=== PATIENT | male | born 1935 | race Caucasian/White ===

== ENCOUNTER 2016-06-08 08:42 | Inpatient (IN) | payer MEDICARE ==
[~2016-06-08] VITALS: Ht 177.8 cm; Wt 82.4 kg
--- NOTE | ~2016-06-08 | EEP ---
Initial Pacemaker Generator Implant Report Demographics Patient Name CHANDLER HORN Gender Male Patient Number [id number] Race Visit Number [id number] Ethnicity Corporate ID Room Number 410 Accession Number [id number] Height 177.8 cm Date of 1935 Weight 87.09 kg Age 80 year(s) BSA 2.05 m Referring Physician Sundar Tariq MD BMI 27.55 kg/m Maria Isabel Castle MD Implanting Physician Sundar Tariq MD Date of Study 06/10/2016 Assisting Physician Performing Physician Sundar Tariq MD The procedure was explained in detail to the patient. Risks, complications and alternative treatments were reviewed. Written consent was obtained. Medications reviewed with patient prior to procedure. Conclusions Implantable Device Summary Summary 1. Successful dual chamber pacemaker implant Recommendations 1. Chest X-ray post-op and in the AM 2. Device check in the AM 3. Follow up with [facility] provider in 5-7 days Complications No complications. Procedure Procedure Type Pacemaker:Initial Insertion (generator and leads), Dual Lead PM Insert A&V Leads Indications Bradycardia. Procedure Description The patient was brought to the electrophysiology laboratory in a fasting state. A baseline ECG was recorded. Surface ECG leads, intracardiac electrograms, blood pressure measurements, and pulse oximety signals were monitored. A grounding pad was placed on the back. A defibrillator was configured to deliver shocks via self-adhesive anterior posterior defibrillator pads. Conscious sedation was administered. The upper chest area was prepped with ChloraPrep. After a three minute dry time the patient was draped in a sterile fashion. A venogram of the left subclavian was performed and patent. 2% Lidocaine with Bupivicaine was used in the infraclavicular area and an incision was made. Blunt dissection down to the area of the Pectoralis Fascia was performed. Subclavian access was obtained and guidewires were placed into the SVC. 2% Lidocaine with Bupivicaine was used inferiorly to the incision. Blunt dissection anterior to the Pectoralis Fascia was used to form the pacemaker pocket. Over one wire, an intravenous sheath and dilator were placed in the superior vena cava under fluoroscopic vision. Through the sheath, the ventricular lead was then placed into the right ventricular apex under fluoroscopic vision and tested. The sheath was removed. The lead was sutured to the Pectoralis fascia using non-absorbable suture. Over the other wire, an intravenous sheath and dilator were placed in to the superior vena cava under fluoroscopic vision. Through the sheath, the atrial lead was then placed in the right atrium under fluoroscopic vision and tested. The sheath was removed. The lead was sutured to the Pectoralis Fascia using non-absorbable sutures. The leads were then connected to the pulse generator and screwed tight. The pocket was irrigated with Ancef. The lead(s) and pulse generator were then placed into the pacemaker pocket. The incision was then closed. It was closed using 2-0 Vicryl for the deep and intermediate layer and 4-0 Vicryl for the subcuticular layer. A sterile dressing was applied. The patient tolerated the procedure well and was returned to the nursing unit in stable condition. Devices and Leads Devices + + + +--------+------+ +--------+ !Identification!Action !Location !Device !Serial!Implant !Comments! ! ! ! !name !# !date ! ! + + + +--------+------+ +--------+ !New implant !Implanted !Left !OLIMPIAO![id number]!06/10/2016! ! ! ! !Subclavicular!MRI DR ! ! ! ! ! ! ! !L111 ! ! ! ! + + + +--------+------+ +--------+ Leads + + +--------+ +------+ +---------+ !Identification!Action !Location!Lead name !Serial!Implant !Comments ! ! ! ! ! !# !date ! ! + + +--------+ +------+ +---------+ !New implant !Implanted !RV apex !PACER LEAD ![id number]!06/10/2016! ! ! ! ! !INGEVITY ! ! ! ! ! ! ! !MRI 59 CM ! ! ! ! + + +--------+ +------+ +---------+ !New implant !Implanted !RA !PACER LEAD ![id number]!06/10/2016! ! ! ! !septal !INGEVITY ! ! ! ! ! ! ! !MRI 52 CM ! ! ! ! + + +--------+ +------+ +---------+ Leads Measured and Programmed Data +-------+---------+ +---------+ +---------+ + +------ -+ !Lead !Sensing Amplitude !Threshold (V) !Pulse Width (ms) !Impendence!Current! ! !(mV) ! ! !(Ohms) !(mA) ! +-------+---------+ +---------+ +---------+ + +------ -+ ! !Measured !Programmed !Measured !Programmed !Measured !Programmed ! ! ! +-------+---------+ +---------+ +---------+ + +------ -+ !RV apex!18.1 !2.5 !0.5 !3.5 !0.5 !0.5 !929 !0.6 ! +-------+---------+ +---------+ +---------+ + +------ -+ !RA !2.7 !0.5 ! !3.5 !0.5 !0.5 !621 ! ! !septal ! ! ! ! ! ! ! ! ! +-------+---------+ +---------+ +---------+ + +------ -+ Device Programming Bradycardia Zone +-------+--------+--------+--------+ + +------+--------+ !Pacing !Mode !Lower !Upper !Paced AV !Sensed AV !PVARP !VRP (ms)! !Mode !Switch !Rate !Rate !Interval !Interval !(ms) ! ! ! ! !(ppm) !(ppm) !(ms) !(ms) ! ! ! +-------+--------+--------+--------+ + +------+--------+ !DDDR !On !60 !110 !210 !180 !320 !250 ! +-------+--------+--------+--------+ + +------+--------+ Medical History Allergies - No known allergies:. Admission Data Admission Date: 06/08/2016 Admission Time: 13:30 Insurance Payors:Medicare. Hospital Status:Inpatient. Procedure Data Procedure Date:06/10/2016Start:14:57End:15:52 Fluoroscopy Time: 3:18 minutes.Fluoroscopy Dose: 121 mGy. Estimated blood loss:13 ml. Contrast Material - Isovue 370,10 ml. Procedure Medications Order and Administration + + +-------+-------+ !Time !Medication !Dosage !Route ! + + +-------+-------+ !06/10/2016 14:57 !Versed !1 mg !I.V. ! + + +-------+-------+ !06/10/2016 14:57 !Fentanyl !50 mcg !I.V. ! + + +-------+-------+ !06/10/2016 14:57 !Sodium Chloride !10 ml !I.V. ! + + +-------+-------+ !06/10/2016 15:01 !Versed !1 mg !I.V. ! + + +-------+-------+ !06/10/2016 15:08 !Fentanyl !50 mcg !I.V. ! + + +-------+-------+ !06/10/2016 15:09 !Versed !1 mg !I.V. ! + + +-------+-------+ !06/10/2016 15:10 !Versed !1 mg !I.V. ! + + +-------+-------+ !06/10/2016 15:33 !Ancef !1 g !Pocket ! + + +-------+-------+ Discharge Data Discharge Date: 06/12/2016 Signatures
--- NOTE | ~2016-06-08 | ECH ---
Transthoracic Echocardiography Report (TTE) Demographics Patient Name JUSTINA ARTEAGA Date of Study 06/09/2016 D Patient Number [id number] Visit Number [id number] Date of 1935 Room Number 410 Accession Number [id number] Gender Male Age 80 year(s) Referring Pradeep Segura Supervisor [employer] Delicia Ojeda [facility] Physician Man [place] Physician Interpreting Roger Mauro Lube Technician Physician Supervising Ordering Physician Priyank POPE MD/SHIRLEY Fernández Nurse Stress Chief Psychology Conclusions Summary Technically adequate exam. The estimated left ventricular ejection fraction is 65%. Mild to moderate left ventricular hypertrophy. The left atrium is severely dilated by LA volume index measurement. The right atrium is mild to moderately dilated. Mild-moderate mitral regurgitation by color Doppler. There is trivial aortic regurgitation by color Doppler. Mild tricuspid regurgitation by color Doppler. The TR jet was not optimal but suggests severe pulmonary hypertension. The estimated pulmonary pressure (RVSP) is 72 mmHg. Normal Right ventricular size and systolic function. No septal flattening. Procedure Type of Study TTE procedure:Echo Complete SF. Procedure Date Date: 06/09/2016 Start: 10:12 AM Technical Quality: Fair due to lung interference. Indications:Bradycardia, edema and Hypertension. Additional Indications:COPD Appropriate Use Criteria: 9 Height: 70 inches Weight: 192 pounds BSA: 2.05 m Rhythm: Sinus bradycardia HR: 49 bpm BP: 124/67 mmHg M-Mode/2D Measurements LV Diastolic Dimension: 5.27 cm LV Systolic Dimension: 2.41 cm LV Septum Diastolic: 1.38 cm LV PW Diastolic: 1.01 cm AO Root Dimension: 2.77 cm Cardiac Output: 5.3 l/min LA Dimension: 4.77 cm Cardiac Index: 2.59 l/min*m RV Diastolic Dimension: 2.99 cm LA volume index: 48 ml/m LVOT: 2.21 cm IVC Inspiration: 3.3 cm LVOT VTI: 28.23 cm RV Base: 4.2 cm LV Stroke volume: 108.23 ml RV Mid: 3 cm LV Stroke volume index: 52.8 ml/m RV Length: 7.4 cm Doppler Measurements AV Peak Velocity: 1.98 m/s MV Peak E-Wave: 1.25 m/s AV Peak Gradient: 15.68 mmHg MV Peak A-Wave: 0.51 m/s AV Mean Gradient: 8.38 mmHg MV E/A Ratio: 2.43 LVOT Peak Velocity: 1.22 m/s MV P1/2t: 67 msec AV Area (Continuity):2.16 cm MV Deceleration Time: 230.9 msec TR Velocity:3.96 m/s MV Area (PHT): 3.29 cm TR Gradient:62.73 mmHg Estimated RAP:10 mmHg Estimated PASP: 72.73 mmHg Estimated RVSP: 73 mmHg RA Area: 21.36 cm Findings Left Ventricle The left ventricle is normal in size . Mild to moderate left ventricular hypertrophy. Diastolic assessment reveals Grade II pseudonormal diastolic function . Right Ventricle Normal right ventricle structure and function. Left Atrium The left atrium is severely dilated by LA volume index measurement. Right Atrium The right atrium is mild to moderately dilated. Mitral Valve Mild thickening of the mitral valve leaflets. Mild-moderate mitral regurgitation by color Doppler. Aortic Valve The aortic valve is moderately sclerotic with a mean gradient of 8mmHg. There is trivial aortic regurgitation by color Doppler. Tricuspid Valve Normal tricuspid valve structure and function. Mild tricuspid regurgitation by color Doppler. There is severe pulmonary hypertension. The pulmonary pressure (RVSP) is 72 mmHg. Pulmonic Valve The pulmonic valve is not well visualized. Pericardial Effusion No evidence of pericardial effusion. Miscellaneous Visualized portions of the aortic root and ascending aorta appear normal in size. IVC 3.3cm with good collapse. Pleural Effusion No evidence of pleural effusion. Contractility Score LV regional wall motion:(0-Non visualized 1-Normal 2-Hypokinesis 3-Akinesis 4-Dyskinesis 5-Aneurysm) Signature
--- NOTE | 2016-06-10 10:37 | HP ---
ADMIT: 06/08/2016 RM/LOC: 410 [facility] MR#: [id number] 26[address] [facility] [address] [place] [id number] JUSTINA ARTEAGA [address] [place] [address] History and Physical SEX: M AGE: 80 : 1935 DATE OF SERVICE: CHIEF COMPLAINT: Shortness of breath. HISTORY OF PRESENT ILLNESS: The patient is an 80-year-old white male, who is normally followed at the [place] [facility] here in [place]. He states that over the past week, he has had a cough and some progressive shortness of breath. His breathing progressively worsened. He does have a COPD diagnosis and is on medications and inhalers for this. He felt that his shortness of breath was worsening significantly over the weekend and went in to see his physician at the [place] today. They immediately sent him into the emergency room for evaluation. He was found to have bilateral pneumonia on chest x-ray. He was also found to be hypoxic. He was, therefore, kept for IV antibiotics and treatment of his COPD and pneumonia. PAST MEDICAL HISTORY: The patient has history of COPD and has home oxygen use, prostate enlargement, hypothyroidism, hypertension, and previous left lung nodule with previous radiation treatment. MEDICATIONS: Current home med list includes: 1. Combivent inhaler 1 puff four times daily. 2. Symbicort inhaler 2 puffs twice daily. 3. DuoNeb breathing treatments 4 times daily. 4. Cholecalciferol 2000 units daily. 5. Cyanocobalamin 1000 mcg daily. 6. Finasteride 5 mg daily. 7. Furosemide 20 mg daily. 8. Guaifenesin 400 mg four times daily. 9. Levothyroxine 88 mcg daily. 10.Lisinopril 40 mg b.i.d. 11.Metoprolol 50 mg b.i.d. 12.Aspirin 81 mg daily. PAST SURGICAL HISTORY: The patient had previous bilateral hip replacement and previous bilateral cataract surgeries. ALLERGIES: NO KNOWN MEDICAL ALLERGIES. SOCIAL HISTORY: The patient currently lives by himself here in [place]. He does have 2 daughters who check in on him. He is . He has a prior history of heavy smoking but quit in 1987. Denies alcohol use on a regular basis and does not use drugs. REVIEW OF SYSTEMS: HEENT: No visual problems, ear problems, sinus problems, sore throat, or difficulty swallowing. PULMONARY: History of COPD. He has had shortness of breath, cough, and tightness in his chest over the past week. CARDIAC: History of hypertension, but currently no chest pains, palpitations, or prior heart disease. ADMIT: 06/08/2016 RM/LOC: [address] [place] [address] MR#: [id number] [address] [id number] JUSTINA ARTEAGA [address] [place] [address] History and Physical SEX: M AGE: 80 : 1935 GASTROINTESTINAL: No nausea, vomiting, diarrhea, or constipation. No current abdominal pain. GENITOURINARY: He does have history of prostate enlargement but currently no dysuria, hematuria, or frequency. ENDOCRINE: No history of diabetes but does have hypothyroidism and takes replacement medication. MUSCULOSKELETAL: No unusual muscle or joint aches and pains. No history of significant arthritic conditions. HEMATOLOGIC: No history of bleeding disorders or blood clots. PSYCHIATRIC: No history of depression, anxiety, or psychiatric problems. NEUROLOGIC: No history of strokes or seizures. PHYSICAL EXAMINATION: VITAL SIGNS: Admission vitals include a temp of 97.0, pulse 46 and regular, respiratory rate 28, blood pressure 122/65, O2 saturations 90% on 3 L of oxygen. GENERAL: The patient is alert and oriented. He answers questions appropriately. He does not appear to be in acute distress. He states he is feeling much better than he did upon admission through the emergency room. HEENT: Ears clear bilaterally. Oropharynx moist without erythema or tonsillar enlargement. Pupils equally round and reactive to light and accommodation bilaterally. NECK: Supple without lymphadenopathy or JVD. No thyroid enlargement or tenderness. LUNGS: With diminished breath sounds bilaterally, but faint wheezes bilaterally. HEART: Bradycardic but regular and without murmur. ABDOMEN: Soft, nontender, and nondistended. No masses on palpation. EXTREMITIES: With 1 to 2+ edema in the lower extremities bilaterally along with obvious varicose veins in his lower legs bilaterally. SKIN: No jaundice, cyanosis, or rash. NEUROLOGIC: No focal deficits. LABORATORY AND X-RAY DATA: Admission labs include urine culture and blood cultures which are currently pending. Admission CBC showed normal white count of 6.8, hemoglobin 12.7, platelet count 172, INR 1.10. Admission sodium 143, potassium 3.4, BUN 24, creatinine 1.1, glucose 91. LFTs normal. Magnesium 2.2, creatine kinase 119, MB 2.4, relative index 2.0, troponin I less than 0.015, lactic acid normal at 1.1, procalcitonin normal at less than 0.05. Urinalysis unremarkable with no signs of infection. Chest x-ray showed patchy bilateral multifocal marking suggestive of pneumonia. EKG showed bradycardia with heart rate of 44 beats per minute. ASSESSMENT: 1. Bilateral pneumonia. ADMIT: 06/08/2016 RM/LOC: [address] [place] [address] MR#: [id number] [id number] [place] [id number] JUSTINA ARTEAGA [address] [place] [address] History and Physical SEX: M AGE: 80 : 1935 2. Chronic obstructive pulmonary disease. 3. Bradycardia. 4. Bilateral lower extremity edema. PLAN: The patient has been admitted and we have started IV Zosyn to cover for his pneumonia. He is also on oxygen nebulized breathing treatments and we will start some IV Solu-Medrol. We will hold his metoprolol at this time due to his bradycardia. We will continue to monitor his heart rate and blood pressure while he is off the metoprolol. We will continue his oral Lasix and place SORIN hose on him for his lower extremity edema. [facility] and we will plan on returning him to his usual provider once he leaves the hospital. Pradeep Nicolas MD/ adina JOB #: [id number] CC: Pradeep Nicolas, Attending Physician Pradeep Nicolas, Family Physician
[2016-06-12] MEDS ORDERED: COMBIVENT RESPIM4 GM IH (20:37)
[2016-06-12] MEDS ORDERED: VITAMIN D-32000 UNI1 PO (20:38)
[2016-06-12] MEDS ORDERED: PROSCAR DPS5 MG PO (20:38)
[2016-06-12] MEDS ORDERED: VITAMIN B-121000 MCG PO (20:38)
[2016-06-12] MEDS ORDERED: DUONEB DPS3 ML IH (20:38)
[2016-06-12] MEDS ORDERED: SYMBICORT160 MCG/6 IH (20:38)
[2016-06-12] MEDS ORDERED: LOPRESSOR DPS50 MG PO (20:39)
[2016-06-12] MEDS ORDERED: LASIX DPS40 MG PO (20:39)
[2016-06-12] MEDS ORDERED: ORGAN-I NR200 MG PO (20:39)
[2016-06-12] MEDS ORDERED: ELIQUIS5 MG PO (20:39)
[2016-06-12] MEDS ORDERED: ZESTRIL DPS20 MG PO (20:39)
[2016-06-12] MEDS ORDERED: SYNTHROID DP0.088 MG PO (20:39)
[2016-06-12] MEDS ORDERED: DELTASONE DPS10 MG PO (20:40)
[2016-06-12] MEDS ORDERED: KLOR-CON 1010 MEQ PO (20:40)
[2016-06-12] MEDS ORDERED: AUGMENTIN 875-1 EACH PO (20:40)
--- NOTE | 2016-06-19 15:09 | CO ---
ADMIT: 06/08/2016 RM/LOC: 410 [facility] MR#: [id number] [address] [address] KATHRYNCAITLYNHARINIJUSTINA CORDERO Maia [address] [place] [address] Consultation SEX: M AGE: 80 : 1935 DATE OF CONSULTATION: 06/09/2016 ATTENDING PHYSICIAN: Pradeep Nicolas CONSULTING PHYSICIAN: Pradeep oYst MD REASON FOR CONSULTATION: Bradycardia. HISTORY OF PRESENT ILLNESS: The patient is a pleasant 80-year-old, male with no known history of coronary artery disease. He states he has had a stress test in the past, but it was quite a long time ago. He usually follows and gets most of his care through the [place]. He states he was feeling very poorly over the weekend, was very short of breath and had heaviness on his chest. His shortness of breath was worse with exertion. He did get some dizziness and lightheadedness while exerting also. He denies any syncope. He has lower extremity edema, which is stable for him. He was started on Lasix about 2 months ago for this, and he did not notice any improvement. He did have a little bit of a cough productive of phlegm, denies any hemoptysis. He was afebrile throughout the weekend and has not had a fever while here in the hospital. [facility] and was sent over to the emergency room for further evaluation. He was diagnosed with pneumonia and a COPD exacerbation and is being treated for such. His EKGs while here in the hospital have shown high-degree AV block. This is a new diagnosis for him. He was on a low dose of Lopressor, which is appropriately being held. PAST MEDICAL HISTORY: Positive for history of tobacco abuse, quit in 1987, smoked since he was a teenager. Positive for hypothyroidism, history of lung cancer, history of hematuria treated in March of 2015, history of COPD, wears oxygen at night until he can wear it as needed during the day, history of cataracts, and hip replacement bilaterally. REVIEW OF SYSTEMS: GENERAL: He has been more tired. Denies fever, chills, sweats, rash, or weight loss. EYES: He wears corrective lenses and has cataracts. Denies double vision, blurred vision, or glaucoma. ENT: Denies hearing loss or problems with nose, mouth or throat. PULMONARY: He has COPD and productive cough, wears oxygen at night. Denies cough, sputum production, asthma, emphysema or bronchitis. Denies snoring loudly, wakefulness at night, or fatigue upon awakening. GASTROINTESTINAL: Denies heartburn or difficulty swallowing. No change in bowel habits. Denies dark or bloody stools. No history of ulcers, hiatal hernia, or gallbladder or liver disease. GENITOURINARY: He had hematuria back in March of 2015, [facility] and [facility]. Denies dysuria, nocturia, urinary tract infection, or kidney stones. Denies history of renal insufficiency or failure. MUSCULOSKELETAL: Denies history of arthritis or gout. Denies muscle or joint pains. ENDOCRINE: He has a history of hypothyroidism. Denies diabetes. HEMATOLOGIC: He has a history of lung cancer. Denies history of anemia or ADMIT: 06/08/2016 RM/LOC: 410 [facility] MR#: [id number] [address] [place] [id number] JUSTINA ARTEAGA [address] [place] [address] Consultation SEX: M AGE: 80 : 1935 easy bruising. NEUROLOGIC: Denies chronic headaches, dizziness, syncope, stroke, seizures or numbness or tingling. PSYCHIATRIC: Denies history of mental illness or feelings of depression. SOCIAL HISTORY: He is . He is retired from [employer] company that he worked for in [place], and then when he moved to [place], he worked for [employer] for 7 years. He does use caffeine in the form of coffee. Does not use any alcohol. Does not have a history of drug use or abuse. He was in the [employer]. MEDICATIONS: He was taking at home include: 1. Lopressor 50 mg 1 p.o. b.i.d. 2. Aspirin 81 mg every Wednesday, Wednesday, Wednesday, , and Wednesday. 3. Lisinopril 40 mg b.i.d. 4. Levothyroxine 88 mcg daily. 5. Guaifenesin 400 mg q.i.d. p.r.n. 6. Furosemide 20 mg daily. 7. Finasteride 5 mg daily. 8. DuoNeb. 9. Symbicort. 10.Vitamin D. 11.Vitamin B. ALLERGIES: HE HAS NO KNOWN MEDICAL ALLERGIES. FAMILY HISTORY: Positive for cancer, and his dad had lymphoma. Positive for stroke in his mom in her 90s. Negative for heart disease. Negative for diabetes. PHYSICAL EXAMINATION: Per Dr. Yost: VITAL SIGNS: Temp 97.9, pulse 48, respirations 20, blood pressure 124/67, and O2 saturation 93%. SKIN: Starr, warm and dry. EYES: Sclerae clear. No xanthelasmas. ENT: Oral mucosa is pink and moist. No jugular venous distention or carotid bruits. CHEST: Course bowel sounds. Expiratory wheezes. HEART: Bradycardia. ABDOMEN: Soft and nontender. MUSCULOSKELETAL: Gait is normal. EXTREMITIES: 2 to 3+ pitting edema. PSYCHIATRIC: Alert and oriented. Mood and affect are appropriate. DIAGNOSTIC DATA: Sodium of 143, potassium 3.4, chloride of 104, carbon dioxide of 31, BUN of 24, glucose 91, creatinine 1.1, mag of 2.2. AST and ALT are normal. Cardiac enzymes are normal. ProBNP is 2774. Chest x-ray shows stable portable chest. Blood cultures are negative. Today; white blood count ADMIT: 06/08/2016 RM/LOC: 410 [facility] MR#: [id number] [address] [address] JUSTINA ARTEAGA [address] [place] [address] Consultation SEX: M AGE: 80 : 1935 of 4.0 with a red blood count of 4.01, hemoglobin 12.2, hematocrit of 38.3 with a platelet count of 176. ASSESSMENT: Per Dr. Yost: 1. High-degree AV block. 2. Pneumonia with chronic obstructive pulmonary disease. 3. Chronic obstructive pulmonary disease. 4. Hypertension. 5. Edema. 6. Hypothyroidism. PLAN: Per Dr. Yost. His high-degree AV block on EKG is concerning. I am concerned he is symptomatic with fatigue and lightheadedness. I agree with holding his beta-juanjose. We will check an echocardiogram to assess his left ventricular function and to assess for any valvular abnormalities and also check a TSH. He will very likely need a permanent pacemaker before discharge because of his symptoms and arrhythmia. I would like to make sure he is treated with antibiotics, and there is no overwhelming infection prior to proceeding, however. I will also give him an IV dose of Lasix to help with his edema. Thank you for allowing us to participate in the care of this patient. ZHANG Polanco / Pradeep Yost MD / adina JOB #: [id number] CC: Pradeep Nicolas, Attending Physician Pradeep Nicolas, Family Physician
--- NOTE | 2016-06-19 17:07 | ER ---
ADMIT: 06/08/2016 RM/LOC: 410 [facility] MR#: [id number] 2620 [facility] [address] JUSTINA ARTEAGA [address] [place] [address] Emergency Room Report SEX: M AGE: 80 : 1935 DATE: 06/08/2016 ADDENDUM: This is an 80-year-old white male coming in being admitted with bradycardia, second degree heart block, but also had an underlying pneumonia that we went ahead and treated. He was admitted, treated with Zosyn prior to going to floor. He was not septic. Allan Ibarra MD/ adina JOB #: [id number] CC: Pradeep Nicolas MD, Attending Physician Pradeep Nicolas MD, Family Physician
[2016-06-23] MEDS ORDERED: AMOXICILLIN875 MG PO (16:21)
[2016-06-23] MEDS ORDERED: FLOMAX DPS0.4 MG PO (16:21)
[2016-06-23] MEDS ORDERED: LEVAQUIN DPS250 MG PO (16:22)
[2016-07-03] MEDS ORDERED: FEOSOL-DPS325 MG PO (21:00)
[2016-07-03] MEDS ORDERED: COLACE-DPS100 MG PO (21:00)
[2016-07-03] MEDS ORDERED: LORTAB 7.5-3251 EACH PO (21:01)
[2016-07-03] MEDS ORDERED: OMNICEF DPS300 MG PO (21:01)
[2016-07-03] MEDS ORDERED: OCEAN NASAL MIS45 ML NS (21:02)
[2016-07-03] MEDS ORDERED: TYLENOL DPS325 MG PO (21:02)
--- NOTE | 2016-07-21 21:43 | DS ---
ADMIT: 06/08/2016 RM/LOC: 410 [facility] MR#: [id number] [address] [address] MISSYCONSUELO JUSTINA D [address] [place] [address] General Discharge Summary SEX: M AGE: 80 : 1935 ADMISSION DATE: 06/08/2016 DISCHARGE DATE: 06/12/2016 CONSULTATIONS DURING THIS HOSPITALIZATION: Cardiology. PROCEDURES DURING THIS HOSPITALIZATION: Pacemaker placement on 06/10/2016. PRIMARY DIAGNOSES: 1. Bilateral pneumonia. 2. Chronic obstructive pulmonary disease. 3. Bradycardia with high-degree AV block (status post pacemaker placement on 06/10/2016). 4. Paroxysmal aflutter. 5. Bilateral lower extremity edema. 6. Hypokalemia. 7. Renal insufficiency. 8. Urine retention with history of benign prostatic enlargement. HISTORY OF PRESENT ILLNESS: The patient is an 80-year-old white male, who is normally followed at the [facility] here in [place]. He states that over the previous week, he has had a cough and some progressive shortness of breath. His breathing continued to progressively worsen. He has a prior diagnosis of COPD and is on medications and inhalers for this. Because his shortness of breath was significantly worse over the weekend, he went to see his physician at the [facility]. They immediately sent him to the emergency room for evaluation when he was found to have bilateral pneumonia on chest x-ray. He was also found to be hypoxic. He is kept in our hospital for IV antibiotics and treatment of his COPD and pneumonia. LABORATORY AND X-RAY DATA: Admission labs through the emergency room included a urine culture and blood cultures. Urine cultures grew multiple organisms and suspected contamination. Blood cultures showed no growth after 5 days. Admission CBC showed normal white count of 6.8, hemoglobin 12.7, platelet count 172, INR 1.10. Admission sodium 143, potassium 3.4, BUN 24, creatinine 1.1, glucose 91. LFTs were normal. Magnesium 2.2. Creatine kinase 119, MB 2.4, relative index 2.0, troponin I less than 0.015. Lactic acid was normal at 1.1, procalcitonin normal at less than 0.05. Urinalysis showed no signs of infection. Chest x-ray showed patchy bilateral multifocal markings suggestive of pneumonia. EKG showed bradycardia with heart rate of 44 beats per minute. Echocardiogram showed an ejection fraction of 65% with [id number] left ventricular hypertrophy. Additional pertinent labs included a white blood cell count of 10.2 prior to discharge, hemoglobin 13.6, platelet count 187, sodium 144, potassium 3.7, BUN 32, creatinine 1.4, glucose 127, alkaline phosphatase 47, AST 27, ALT 47, magnesium 2.5, proBNP level 2073 prior to discharge. Free T4 was 1.63, TSH 2.450. HOSPITAL COURSE: The patient was admitted on 06/08/2016 with hypoxia and bilateral pneumonia. He was started on IV Zosyn at time of admission. Oxygen was continued to keep sats greater than 90%. DuoNeb breathing treatments and ADMIT: 06/08/2016 RM/LOC: 410 [facility] MR#: [id number] [address] [place] [phone] JUSTINA ARTEAGA [address] [place] [address] General Discharge Summary SEX: M AGE: 80 : 1935 IV Solu-Medrol were also ordered due to patient's history of COPD. The patient was discovered to have significant bradycardia as well and Cardiology was consulted. His metoprolol was held due to the bradycardia. The patient did seem to improve with his breathing and hypoxia after initiating the IV Zosyn, DuoNeb breathing treatments, oxygen, and IV steroids. Cardiology did see this patient in consultation and noticed a high grade AV block on EKG with paroxysmal atrial flutter. The patient was set up to have a pacemaker placed because of this, and this pacemaker was placed on 06/10/2016. The patient continued to do well. His breathing and cough were all improving. Heart rate improved after pacemaker placement. A Obregon catheter was placed due to urine retention secondary to his prostate enlargement. IV steroids were weaned over the course of this hospitalization. The patient did have his metoprolol resumed following pacemaker placement. IV Lasix for diuresis was given as well. Home oxygen orders were approved and certified during this hospitalization. By 06/12/2016, the patient was feeling much better. He was therefore set up to be discharged to home in very stable condition with plans to [facility]. DISCHARGE INSTRUCTIONS: The patient was discharged to home on 06/12/2016. DISCHARGE MEDICATIONS: Medications at time of discharge included: 1. Lopressor 50 mg b.i.d. 2. Proscar 5 mg daily. 3. Synthroid 0.088 mg daily. 4. Vitamin B12 1000 mcg daily. 5. Vitamin D 2000 units daily. 6. Zestril 40 mg b.i.d. 7. Symbicort 160/4.5, two puffs b.i.d. 8. DuoNeb breathing treatments every 4 hours. 9. Combivent inhaler. 10.Eliquis 5 mg b.i.d. 11.Lasix 40 mg b.i.d. 12.Potassium 10 mEq daily. 13.Prednisone 40 mg daily for 7 days. 14.Augmentin 875 mg b.i.d. for 10 days. FOLLOWUP: Follow up with his regular [facility] provider in 1 week. Pradeep Nicolas MD/ adina JOB #: [id number] CC: Pradeep Nicolas MD, Attending Physician Pradeep Nicolas MD, Family Physician
== END 2016-06-12 15:00 | disposition home or self-care (01) | DRG 190 ==
LOC: ER 08:42 → 4PCU 13:30
PROVIDERS: ADMIT Family Medicine
PROC: 02H63JZ Insertion of Pacemaker Lead into Right Atrium, Percutaneous Approach (ICD-10-PCS; principal; 2016-06-10)
PROC: 0JH606Z Insertion of Pacemaker, Dual Chamber into Chest Subcutaneous Tissue and Fascia, Open Approach (ICD-10-PCS; principal; 2016-06-10)
PROC: 02HK3JZ Insertion of Pacemaker Lead into Right Ventricle, Percutaneous Approach (ICD-10-PCS; principal; 2016-06-10)
DX: J44.0 Chronic obstructive pulmonary disease with (acute) lower respiratory infection (principal); J18.9 Pneumonia, unspecified organism; I44.2 Atrioventricular block, complete; I50.21 Acute systolic (congestive) heart failure; I48.92 Unspecified atrial flutter; I13.0 Hypertensive heart and chronic kidney disease with heart failure and stage 1 through stage 4 chronic kidney disease, or unspecified chronic kidney disease; R09.02 Hypoxemia; R00.1 Bradycardia, unspecified; N18.9 Chronic kidney disease, unspecified; E87.6 Hypokalemia; R33.8 Other retention of urine; N40.0 Benign prostatic hyperplasia without lower urinary tract symptoms; E03.9 Hypothyroidism, unspecified; Z79.82 Long term (current) use of aspirin; Z96.643 Presence of artificial hip joint, bilateral; Z87.891 Personal history of nicotine dependence

== ENCOUNTER 2016-06-20 03:27 | Observation (INO) | payer MEDICARE ==
[~2016-06-20] VITALS: Ht 177.8 cm; Wt 78.5 kg
--- NOTE | ~2016-06-20 | CO ---
ADMIT: 06/20/2016 RM/LOC: 520 [facility] MR#: [id number] [address] [address] MISSYCONSUELO JUSTINA Carvalho [address] [place] [address] Consultation SEX: M AGE: 80 : 1935 DATE OF CONSULTATION: 06/20/2016 ATTENDING PHYSICIAN: Aquilino Gaviria CONSULTING PHYSICIAN: Colin Cardenas MD REASON FOR CONSULTATION: Gross hematuria. HISTORY OF PRESENT ILLNESS: The patient is a pleasant, 80-year-old white male, with recent admission for bilateral pneumonia. He did undergo pacemaker placement, is now on Eliquis 5 mg b.i.d. He did have an indwelling Obregon catheter secondary to urinary retention noted during hospitalization. He does have a history of benign prostatic hypertrophy, but was on no medications. Denies any previous voiding difficulties prior to last hospital admission. The patient noted onset of gross hematuria yesterday. Obregon catheter stopped draining, he presented to the emergency room. He was having leakage around the catheter, they placed a 3-way Obregon catheter. CBI demonstrates grossly bloody urine. There were occasional clots passing. I am asked to see the patient in consultation. The patient denies any past surgical history involving the urinary tract. He was not on blood thinners prior to his previous hospitalization. He denies any history of hematuria or urinary tract infection, maybe some mild baseline bladder outlet obstruction. He is now on Proscar, but I do not see that they placed him on any type of Flomax. The patient is somewhat uncomfortable with Obregon catheter present. Fortunately, there has been no fever. We did do some labs on him at the time of admission and his INR was 1.13 although Eliquis does not affect this. Serum creatinine 1.3 at baseline. White blood cell count 12.9, hematocrit 39.2, and platelet count 178. Previous urine culture was negative. He is on Augmentin at the present time. PHYSICAL EXAMINATION: GENERAL: The patient is in no apparent distress, but uncomfortable with Obregon catheter. ABDOMEN: Soft without suprapubic mass or tenderness. I do not appreciate a distended bladder. : The patient is circumcised, 22-[place] 3-way Obregon catheter draining grossly bloody urine. Testes descended bilaterally. RECTAL: Demonstrates 30+ g prostate. Smooth without nodularity, induration, or asymmetry. LABORATORY DATA: Serum creatinine 1.3. INR 1.13. White blood cell count 12.9, and hematocrit 39.2. BEDSIDE PROCEDURE: The patient's Obregon catheter was irrigated with sterile water. I simply could not irrigate anything. When I advanced the catheter higher up into the bladder, I was able to irrigate some, but never was able to obtain any significant clot. I suspect that we were dealing with a fairly tenacious clot that is causing this ongoing appearance of gross hematuria. I do feel the patient needs a formal clot evacuation or this is simply going to continue. The Obregon catheter was left to gravity drainage. ADMIT: 06/20/2016 RM/LOC: 520 [facility] MR#: [id number] [address] [place] [id number] JUSTINA ARTEAGA [address] [place] [address] Consultation SEX: M AGE: 80 : 1935 ASSESSMENT: 1. Gross hematuria with clot retention. Unable to irrigate at bedside. 2. Benign prostatic hypertrophy. 3. Recent bilateral pneumonia. 4. Recent pacemaker placement with ongoing anticoagulant therapy using Eliquis. PLAN: Given the fact that I cannot irrigate at bedside, I think we will have to take the patient back for operative intervention with cystoscopy, formal clot evacuation, Obregon catheter placement, and fulguration of any obvious bleeding sites. Obviously we will not consider any type of resection unless absolutely necessary given that he is currently on Eliquis which has just been placed on hold today. Risks are significant given the patient's advanced age, recent pneumonia, pacemaker placement, ongoing anticoagulation, but I do not feel we have any choice as I do feel we will have continued problems with Obregon catheter drainage and inability to irrigate. Risks and benefits to include complications of anesthesia, bleeding, infection, continued bleeding, need for prolonged Obregon catheterization as well as additional procedures to deal with bladder outlet obstruction have been discussed. The patient voices understanding. Situation has also been discussed with daughter who is aware of our plan of action. Colin Cardenas MD/ adina JOB #: [id number] CC: Aquilino Gaviria, Attending Physician Aquilino Gaviria, Family Physician
[~2016-06-20 03:27] MED LIST: AUGMENTIN 875-1 EACH PO; COMBIVENT RESPIM4 GM IH; DELTASONE DPS10 MG PO; DUONEB DPS3 ML IH; ELIQUIS5 MG PO; KLOR-CON 1010 MEQ PO; LASIX DPS40 MG PO; LOPRESSOR DPS50 MG PO; ORGAN-I NR200 MG PO; PROSCAR DPS5 MG PO; SYMBICORT160 MCG/6 IH; SYNTHROID DP0.088 MG PO; VITAMIN B-121000 MCG PO; VITAMIN D-32000 UNI1 PO; ZESTRIL DPS20 MG PO
[2016-06-23] MEDS ORDERED: AMOXICILLIN875 MG PO (16:21)
[2016-06-23] MEDS ORDERED: FLOMAX DPS0.4 MG PO (16:21)
[2016-06-23] MEDS ORDERED: LEVAQUIN DPS250 MG PO (16:22)
--- NOTE | 2016-06-27 07:39 | ER ---
ADMIT: 06/20/2016 RM/LOC: 520 [facility] MR#: [id number] [address] [address] EDWINSagarJUSTINA [address] [place] [address] Emergency Room Report SEX: M AGE: 80 : 1935 DATE: 06/20/2016 CHIEF COMPLAINT: Unable to urinate and blood in the Obregon bag. HISTORY OF PRESENT ILLNESS: The patient is an 80-year-old gentleman, whose recent history is significant for high-degree AV block for which he had symptomatic bradycardia and just recently had a dual-chamber pacemaker placed. From my understanding, he was in the hospital for 4 days and went home on the , which was 8 days ago. He did have problems with voiding after the procedure and failed a trial of removing his Obregon and had to have it replaced. He has been discharged home on Eliquis and did have some bleeding over the past week. It was not as severe as it has been in the Obregon bag this evening. [facility] and [facility] this last [facility]. They note that this evening, he was unable to pass any urine in the Obregon bag and actually had some blood-tinged urine leaking out around his Obregon and his penis. He does state that he feels like he needs to urinate, but has no other complaints at this time. REVIEW OF SYSTEMS: A 10-point review of systems is done and otherwise negative except as in HPI. PAST MEDICAL HISTORY: Significant for history of lung cancer, for which he has had radiation therapy. Also, has a diagnosis of COPD, bradycardia with AV block, hypertension. PAST SURGICAL HISTORY: Bilateral hip replacement, cataract surgery, and placement of pacemaker. MEDICATIONS: See nurse's note. It is noted he is on Eliquis, which has just recently been started. ALLERGIES: SEE NURSE'S NOTE. SOCIAL HISTORY: The patient used to be a smoker and quit in 1987. Denies any drug use and only rarely uses alcohol. PHYSICAL EXAMINATION: GENERAL: The patient is alert, in no distress. CHEST: Shows he does have well healing wound on his left anterior chest with some ecchymosis from his recent pacemaker placement. HEART: Regular rate and rhythm. LUNGS: Clear to auscultation. ABDOMEN: Soft. He does have some mild tenderness in the suprapubic region. EXTREMITIES: Show he has some ecchymosis on both arms, but has good pulses in all 4 extremities. Sensation and motor are grossly intact. DIAGNOSTIC STUDIES: Bladder scan with greater than 999 mL. LABORATORY DATA: White count of 12.9, hemoglobin of 12.7, platelets 178. Sodium 143, potassium 3.4, carbon dioxide 32, BUN 42, creatinine 1.3. ADMIT: 06/20/2016 RM/LOC: 520 [facility] MR#: [id number] [address] [place] [id number] JUSTINA ARTEAGA [address] [place] [address] Emergency Room Report SEX: M AGE: 80 : 1935 EMERGENCY DEPARTMENT COURSE: The patient arrived, his Obregon bag showed that he had what was almost delmy blood in the bag with essentially no urine volume. Bladder scan confirmed he had a full bladder. The Obregon he had was removed and replaced with another Obregon, so we could do continuous bladder irrigation. Greater than 1000 mL was obtained after the new Obregon was placed and it was very heavily blood-tinged, but there were no clots present. With bladder irrigation, he did have significant clearing of the urine but as soon as the irrigation was turned down, the urine would become quite bloody again. Due to the degree of bleeding, I think it is going on with his hematuria. Plan is to have the patient brought in at this time. I did speak to Dr. Gaviria, who is on for city call, who will be bringing the patient in for further management of his hematuria, his anemia, and his urinary retention despite having the Obregon, and the patient is admitted in stable condition. Yeison Fu MD/ adina JOB #: [id number] CC: Aquilino Gaviria MD, Attending Physician Aquilino Gaviria MD, Family Physician
[2016-07-03] MEDS ORDERED: COLACE-DPS100 MG PO (21:00)
[2016-07-03] MEDS ORDERED: FEOSOL-DPS325 MG PO (21:00)
[2016-07-03] MEDS ORDERED: OMNICEF DPS300 MG PO (21:01)
[2016-07-03] MEDS ORDERED: LORTAB 7.5-3251 EACH PO (21:01)
[2016-07-03] MEDS ORDERED: TYLENOL DPS325 MG PO (21:02)
[2016-07-03] MEDS ORDERED: OCEAN NASAL MIS45 ML NS (21:02)
--- NOTE | 2016-07-06 08:46 | HP ---
ADMIT: 06/20/2016 RM/LOC: 520 [facility] MR#: [id number] [address] [address] JUSTINA ARTEAGA [address] [place] [address] History and Physical SEX: M AGE: 80 : 1935 DATE OF SERVICE: 06/20/2016 CHIEF COMPLAINT: Gross hematuria. 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 He was actually just discharged from the hospital on the . At that time, he was diagnosed with bilateral pneumonia and during his hospitalization, had significant high- degree AV block and symptomatic bradycardia and had a dual-chamber pacer placed by [facility]. He had problems voiding after the procedure and failed a voiding trial after removing his Obregon and was actually discharged with a Obregon in place. He was also discharged on Eliquis. He notes that the significant bleeding into the Obregon just started here in the last day or two. Attempts to irrigate this in the ER were unsuccessful and the Obregon continued to clog without the continuos bladder irrigation. He was actually having some urine leaking around the Obregon catheter. PAST MEDICAL HISTORY: Remarkable for: 1. COPD. 2. Enlarged prostate. 3. Hypothyroidism. 4. Hypertension. 5. Previous lung nodule. PAST SURGICAL HISTORY: 1. Previous bilateral hip replacements. 2. Bilateral cataract surgeries. OUTPATIENT MEDICATIONS: 1. Combivent. 2. DuoNeb. 3. Symbicort. 4. Cholecalciferol. 5. Vitamin B12. 6. Finasteride. 7. Lasix. 8. Guaifenesin. 9. Levothyroxine 88 mcg daily. 10.Lisinopril 40 mg daily. 11.Metoprolol 50 mg b.i.d. 12.Eliquis 5 mg b.i.d. 13.Potassium chloride 10 mEq late daily. 14.Prednisone 40 mg for seven days. 15.Augmentin 875 mg p.o. b.i.d. for 10 days. Prednisone and Augmentin were started on the 12 of June. ALLERGIES: NO KNOWN MEDICAL ALLERGIES. ADMIT: 06/20/2016 RM/LOC: 520 [facility] MR#: [id number] [address] [address] MISSYJUSTINA CORDERO Maia [address] [place] [address] History and Physical SEX: M AGE: 80 : 1935 SOCIAL HISTORY: He lives by himself in [place]. He has two daughters. He is . He has a prior history of heavy tobacco use, but quit in 1987. Denies any alcohol on a regular basis. REVIEW OF SYSTEMS: Aside from his hematuria, he is otherwise noting that he is improving from his recent pneumonia and is not having any shortness of breath, chest pain, cough, or fevers at this point. PHYSICAL EXAMINATION: VITAL SIGNS: Blood pressure is 145/78, pulse 71, respirations 18, temp 98.0, O2 sat is 96% on 1-2 L nasal cannula. GENERAL: Awake, alert, no acute distress. Comfortable in the exam room. He does have bruising noted around his recent pacer placement site and gross hematuria draining from his Obregon catheter. HEENT: Normocephalic, atraumatic. HEART: Regular rate and rhythm. No murmurs, gallops, or rubs. LUNGS: Clear to auscultation bilaterally. ABDOMEN: Soft, nontender, nondistended. No rebound, guarding, or masses. EXTREMITIES: No cyanosis, clubbing, or edema. LABORATORY AND X-RAY DATA: BMP is without clinically significant abnormalities. CBC shows a white count of 12.9, hemoglobin 12.7, platelet count 178. ASSESSMENT: 1. Gross hematuria, now on Eliquis. 2. Recently placed dual-chamber pacer for symptomatic bradycardia and atrioventricular block. 3. Chronic obstructive pulmonary disease. 4. History of enlarged prostate. 5. Hypothyroidism. 6. Hypertension. PLAN: Dr. Cardenas with Urology is seeing the patient right now, and is recommending he go down to the operating room. I have also consulted [facility] to follow along. His Eliquis is going to be placed on hold. We will continue his lung medications and his Augmentin and prednisone for now. Further management will be dependent on his clinical course. Aquilino Gaviria MD/ adina JOB #: [id number] CC: Aquilino Gaviria, Attending Physician Aquilino Gaviria, Family Physician
--- NOTE | 2016-07-21 10:07 | OR ---
ADMIT: 06/20/2016 RM/LOC: 520 [facility] MR#: [id number] [address] [address] MISSYCONSUELO JUSTINA Carvalho [address] [place] [address] Operative/Delivery Room Report SEX: M AGE: 80 : 1935 SURGERY DATE: 06/20/2016 SURGEON: Colin Cardenas MD PREOPERATIVE DIAGNOSES: 1. Gross hematuria, probable clot retention. 2. BPH. 3. Recent urinary retention. POSTOPERATIVE DIAGNOSES: 1. Gross hematuria with clot retention. 2. BPH. 3. Recent issues of urinary retention. 4. Ongoing Eliquis therapy exacerbating the situation. PROCEDURES: Cystoscopy with clot evacuation and fulguration. ANESTHESIA: General. INDICATIONS: The patient is a pleasant white male, who presents with gross hematuria, unable to irrigate Obregon on the floor, on Eliquis which is likely exacerbating the situation. After discussion with the patient and family, I have recommended cystoscopy, clot evacuation, further assessment. They do consent. Preoperative antibiotics given. Informed consent obtained. Patient does consent to procedures. DESCRIPTION OF PROCEDURE: The patient taken was taken to OR #5, placed on the table in supine position. After adequate anesthesia, transferred to dorsal lithotomy position, Obregon catheter was removed. Prepped and draped in the usual sterile fashion. A time-out was taken for patient's name, date of , planned procedure, preoperative antibiotics, and allergies. A 26-Lithuanian resectoscope sheath with visual obturator and 12 degree lens was then advanced to the level of the bladder. Old clot was noted. The [employer] evacuator was then used to irrigate the bladder, approximately 200 mL of old clot was evacuated from the bladder lumen. After all clot had been evacuated from the bladder, routine cystoscopy was carried out which demonstrated mild trabeculation of the bladder. Several shallow cellules but no large diverticula noted. No stones, foreign bodies, or tumors noted. I did not see any active bleeding from the bladder mucosa. I then withdrew the scope to the level of the bladder neck. Ureteral orifice visualized, both demonstrate clear urine efflux. There was lateral lobe enlargement. No significant median lobe component, but some evidence of probable catheter trauma right at the bladder neck. With out flow, there was no bleeding at the bladder neck. There was no bleeding through the prostatic fossa and no oozing from the bladder mucosa. Given that the patient was still taking Eliquis until this morning, I elected not to go any further. If the patient fails future voiding ADMIT: 06/20/2016 RM/LOC: 520 [facility] MR#: [id number] [address] [address] JUSTINA ARTEAGA [address] [place] [address] Operative/Delivery Room Report SEX: M AGE: 80 : 1935 trial or this continues to be a problem, may have to consider transurethral resection of prostate gland at that time. At this point, the scope was withdrawn. A 22-Lithuanian 3-way [place] Obregon catheter was then passed into the bladder, 30 mL instilled in the balloon. This seats nicely at the bladder neck. With hand irrigation, the urinary effluent was clear. The catheter was left to gravity drainage. CBI was then initiated. B and O suppository were placed. The patient taken to dorsal lithotomy position, extubated uneventfully, and transferred to recovery room in stable condition. DISPOSITION: The patient will be observed on an inpatient basis with continued bladder irrigation. We will hold his Eliquis, continue with Levaquin antibiotic therapy. Colin Cardenas MD/ adina JOB #: [id number] CC: Aquilino Gavirai, Attending Physician Aquilino Gaviria, Family Physician
--- NOTE | 2016-07-22 08:32 | DS ---
ADMIT: 06/20/2016 RM/LOC: 520 [facility] MR#: [id number] [address] [address] JUSTINA RAHMAN [address] [place] [address] General Discharge Summary SEX: M AGE: 80 : 1935 ADMISSION DATE: 06/20/2016 DISCHARGE DATE: 06/22/2016 ADMITTING DIAGNOSES: 1. Gross hematuria, on Eliquis. 2. Recently placed dual-chamber pacer for symptomatic bradycardia and AV block. 3. Chronic obstructive pulmonary disease. 4. History of enlarged prostate. 5. Hypothyroidism. 6. Hypertension. DISCHARGE DIAGNOSES: 1. Gross hematuria, on Eliquis. 2. Recently placed dual-chamber pacer for symptomatic bradycardia and AV block. 3. Chronic obstructive pulmonary disease. 4. History of enlarged prostate. 5. Hypothyroidism. 6. Hypertension. CONSULTATIONS: Dr. Colin Cardenas, consulted on 06/20/2016. PROCEDURES: Cystoscopy with clot evacuation and fulguration. HISTORY AND PHYSICAL EXAM: Mr. Rahman is 80-year-old [facility] patient, who presented to the [facility] Emergency Department in the very hearing therapist hours of 06/20/2016, with gross hematuria. He was actually just discharged from the hospital on 06/12/2016, having previously been diagnosed with pneumonia and having had a dual chamber pacer placed for high-degree AV block and symptomatic bradycardia. He had problems voiding after his procedure. He had failed voiding trial after having removal of Obregon and had been discharged with a Obregon in place. He was also been discharged on Eliquis. He noted the preceding 1 to 2 days prior to admission, he began having gross blood in the Obregon. He was seen in the ER, where they attempted to irrigate his Obregon and were unable to do so. He was admitted to the hospital for further management of his Obregon, subsequent urinary retention, and evaluation of his gross hematuria. HOSPITAL COURSE: Overall Justina's hospital course was unremarkable. His Eliquis was discontinued. BIBIANA was courtesy consulted. Dr. Cardenas with Urology was consulted and did take Justina down to the operating room for clot evacuation and fulguration on 06/20/2016. Over the ensuing 24 to 48 hours, ADMIT: 06/20/2016 RM/LOC: 520 [facility] MR#: [id number] [address] [address] JUSTINA RAHMAN [address] [place] [address] General Discharge Summary SEX: M AGE: 80 : 1935 Justina's urine cleared nicely and he was felt safe for [place] back to the [place] on the 22 of June. DISPOSITION: He was discharged home. DISCHARGE CONDITION: Fair. DISCHARGE MEDICATIONS: Please refer to his discharge MAR for his discharge medications. FOLLOWUP: [facility]. He is to follow up with Dr. Cardenas following Wednesday for removal of his Obregon. Aquilino Gaviria MD/ ronl JOB #: [id number] CC: Aquilino Gaviria MD, Attending Physician Aquilino Gaviria MD, Family Physician
== END 2016-06-22 19:40 | disposition home or self-care (01) ==
LOC: ER 03:27 → 5MS 05:23
PROVIDERS: ADMIT Family Medicine
DX: N40.1 Benign prostatic hyperplasia with lower urinary tract symptoms (principal); R33.8 Other retention of urine; R31.0 Gross hematuria; J44.1 Chronic obstructive pulmonary disease with (acute) exacerbation; I10 Essential (primary) hypertension; E03.9 Hypothyroidism, unspecified; Z79.899 Other long term (current) drug therapy; Z95.0 Presence of cardiac pacemaker; Z96.643 Presence of artificial hip joint, bilateral; Z98.41 Cataract extraction status, right eye; Z98.42 Cataract extraction status, left eye; Z79.52 Long term (current) use of systemic steroids

== ENCOUNTER 2016-06-26 09:18 | Inpatient (IN) | payer MEDICARE ==
[~2016-06-26] VITALS: Ht 177.8 cm; Wt 79.0 kg
[~2016-06-26 09:18] MED LIST changes: +AMOXICILLIN875 MG PO; +FLOMAX DPS0.4 MG PO; +LEVAQUIN DPS250 MG PO
--- NOTE | 2016-06-27 07:39 | ER ---
ADMIT: 06/26/2016 RM/LOC: 416 [facility] MR#: [id number] [address] [address] JUSTINA ARTEAGA [address] [place] [address] Emergency Room Report SEX: M AGE: 80 : 1935 DATE: 06/26/2016 ADDENDUM: See T-sheet for complete H and P. The patient is an 80-year-old male, who presents with recurrent problems with difficulty with drainage from his Obregon and blood in his urine. 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 At that time, he developed some urinary retention and had a Obregon placed and was discharged home. He had been started on Eliquis at that time. In the interim, he did develop some intermittent hematuria and was actually seen back in the ER 6 days ago with inability to get any urine out in his Obregon, abdominal pain, and hematuria. The patient was admitted at that time as we were unable to get clearing of his urine with continuous bladder irrigation. During his admission, he had a cystoscopy done and a clot evacuated. He subsequently was discharged after 3 days in the hospital after his urine cleared, but still with Obregon and he was off Eliquis. He had been doing fine until last night when he began having gross hematuria again and then had some problems with intermittent difficulty drainage of his Obregon overnight. This morning, he had continued blood in his Obregon and felt quite lightheaded. He is actually brought in by EMS and was hypotensive. He was given a liter of normal saline, which improved his blood pressure which was initially 70 systolic to the low one 100s. He received initial 500 when his blood pressure dropped to the 90s systolic again. Our workup here showed, he did have blood in his urine, but it would drain after we pulled off a urine sample. He did not get any more bladder irrigation in the ER because the Obregon was draining. Initially, his bladder scan was 280 mL. His hemoglobin here was not significantly different than previous, and he is symptomatically improved, and his blood pressure was improved. I am uncomfortable having the patient go home at this time as he was still hypotensive and symptomatic when he arrived. He is city-call, so I have admitted him to Dr. Dozier, and Dr. Cardenas is made aware of the patient who will be following also. DIAGNOSES: 1. Gross hematuria. 2. Lightheadedness. 3. Hypotension. Yeison Fu MD/ adina JOB #: [id number] CC: Minerva Dozier MD, Attending Physician Minerva Dozier MD, Family Physician
--- NOTE | 2016-07-01 19:48 | HP ---
ADMIT: 06/26/2016 RM/LOC: 416 [facility] MR#: [id number] [address] [address] MISSYJUSTINA CORDERO [address] [place] [address] History and Physical SEX: M AGE: 80 : 1935 DATE OF SERVICE: The patient was just dismissed less than a week ago, so this is an interim history and physical. Please refer to the last H and P from June 19. CHIEF COMPLAINT: Bloody urine in the Obregon catheter. HISTORY OF PRESENT ILLNESS: This gentleman has had recurrent hematuria. In mid May, he was admitted with pneumonia and found to be in AV block, had a pacemaker placed and was sent home on Eliquis. He had a Obregon placed for acute urine retention with probable outlet obstruction and he had hematuria at that time. The Obregon was irrigated and he was doing fairly well, so he went home. A couple of days later, he came back because of gross hematuria and underwent cystoscopy. Clots were evacuated, his Eliquis was stopped and he went back home on June 22. He said for June 22, and , his urine was clear yellow in the Obregon bag. However, yesterday, he said he felt like it was "a little too full" and the urine was looking pink to him. He just describes some vague discomfort. By last p.m., he had bloody urine and his daughter was over to help him. They described clots and said it appeared to be clotted off and the urine was not flowing. He took a shower and tried to move around a little bit and then started to have some more urine output, but it was still grossly bloody. They have not seen clots since last night, however. He came in today because he was still seeing bloody urine and was feeling quite lightheaded. On admission to the ER, blood pressures were 70s over 40s. He got a liter of fluid and it came up to around 100/60. Currently, fluids are running about 100 to 115 systolic and he says he feels much better. He denies nausea. He did eat breakfast today. His laboratory is fairly stable with a hemoglobin of 12.4. Due to the recurrent hematuria even when off anticoagulation, I am going to admit the patient. We will consult Dr. Cardenas, who is his urologist. Dr. Cardenas plans to irrigate the Obregon and if he is able to irrigate it clear, then continue Obregon catheter and consider taking him to the OR within the next couple of days for a TURP. If he is unable to irrigate, he will have to do the surgery more urgently. The patient and his family all agree to that plan. Please refer to the most recent history and physical for past medical history, medications, social history, and family history. REVIEW OF SYSTEMS: GENERAL: Benign. He denies any fever. Said his appetite has been okay. HEENT: Denies headaches. He did feel dizzy today. Denies syncope. CARDIOPULMONARY: He denies any chest pain. No shortness of breath. GASTROINTESTINAL: Benign. No nausea. GENITOURINARY: Positive for the hematuria as described above. MUSCULOSKELETAL: No new changes. PHYSICAL EXAMINATION: VITAL SIGNS: Blood pressure was 70/40 and now at ADMIT: 06/26/2016 RM/LOC: 416 [facility] MR#: [id number] [address] [place] [id number] JUSTINA ARTEAGA [address] [place] [address] History and Physical SEX: M AGE: 80 : 1935 107/55. Heart rate is in the 70s. Oxygenation is 98% on his usual 3 L of O2. GENERAL: The patient is alert, oriented, pleasant. He is able to give a good history. His daughter and son-in-law are at the bedside. HEENT: Looks unremarkable. He has pink conjunctiva. NECK: Supple with no jugular venous distention. HEART: Regular. LUNGS: Distant diminished breath sounds bilaterally. There is no audible wheeze or rhonchi. ABDOMEN: Belly with normal bowel sounds. No distention. Just a little bit uncomfortable with palpation over the suprapubic area, but no guarding. The Obregon catheter is in place and is draining dark red bloody urine with no visible clots. EXTREMITIES: Lower extremities have no edema. Capillary refill is normal throughout. ASSESSMENT AND PLAN: 1. Recurrent hematuria with known bladder outlet obstruction and bladder retention. 2. Other chronic illnesses including chronic obstructive pulmonary disease, hypertension, heart block status post pacemaker less than a month ago, also hypothyroidism, osteoarthritis, all his chronic comorbidities. I will admit the patient. Dr. Cardenas will consult, and I will also monitor his blood count. At this point, hemoglobin is stable. Minerva Dozier MD/ adina JOB #: [id number] CC: Minerva Dozier, Attending Physician Minerva Dozier, Family Physician
[2016-07-03] MEDS ORDERED: COLACE-DPS100 MG PO (21:00)
[2016-07-03] MEDS ORDERED: FEOSOL-DPS325 MG PO (21:00)
[2016-07-03] MEDS ORDERED: OMNICEF DPS300 MG PO (21:01)
[2016-07-03] MEDS ORDERED: LORTAB 7.5-3251 EACH PO (21:01)
[2016-07-03] MEDS ORDERED: OCEAN NASAL MIS45 ML NS (21:02)
[2016-07-03] MEDS ORDERED: TYLENOL DPS325 MG PO (21:02)
--- NOTE | 2016-07-21 10:07 | OR ---
ADMIT: 06/26/2016 RM/LOC: 623 [facility] MR#: [id number] [address] [address] KATHRYNCAITLYNHARINIJUSTINA CORDERO [address] [place] [address] Operative/Delivery Room Report SEX: M AGE: 80 : 1935 SURGERY DATE: 06/30/2016 SURGEON: Colin Cardenas MD PREOPERATIVE DIAGNOSES: 1. Gross hematuria with clot retention. 2. Benign prostatic hypertrophy. 3. Urinary retention. POSTOPERATIVE DIAGNOSES: 1. Gross hematuria with clot retention. 2. Benign prostatic hypertrophy. 3. Urinary retention. PROCEDURE: Cystoscopy, change resection prostate gland. ANESTHESIA: General. INDICATION: The patient is a pleasant white male, who presented initially with gross hematuria. Clot evacuation was undertaken as he was on Eliquis. No other intervention was performed. The patient did fail a voiding trial, presented again with gross hematuria. As his Eliquis was wearing off, his urine has remained clear. We proceed to the operating room for TURP today. Informed consent was obtained. Preoperative antibiotics were given. PROCEDURE IN DETAIL: The patient was taken to OR #5, placed on the table in supine position. After adequate anesthesia, transferred to dorsal lithotomy position, Obregon catheter removed; prepped and draped in the usual fashion. A time-out was taken for the patient's name, date of , planned procedure, preoperative antibiotics, and allergies. A 26-P[place] Islander resectoscope sheath with visual obturator and 12 degree lens was advanced to the level of the bladder. The ureteral orifices were identified in close proximity to the bladder neck. We did inspect the prostatic urethra. There was some just a minor bit of tissue at the bladder neck in the medial position. Lateral lobe enlargement, fairly long prostatic urethra noted. Beginning at the 7 o'clock position, the bladder neck was resected across the 5 o'clock position, and this resection was extended back to the level of the verumontanum. We did have to resect some of the lateral lobe tissue just to maintain visualization as we went along. This was somewhat slow going as there was a lot of focal arterial bleeding points which had to be controlled with coagulating current as we went. The lateral lobes were very tall. We did resect between the 7 and 11 o'clock position at the bladder neck. There was a fairly significant amount of nodular tissue along the right lateral aspect of the prostate, and this resection took some time. Again, we were encountering a fair amount of arterial bleeders which required coagulating current and did slow our progress. We did carry our resection back to the level of the verumontanum. We then turned our attention to the left lobe of the prostate gland between 5 o'clock and 1 o'clock position. The tissue was ADMIT: 06/26/2016 RM/LOC: 623 [facility] MR#: [id number] [address] [place] [id number] JUSTINA ARTEAGA [address] [place] [address] Operative/Delivery Room Report SEX: M AGE: 80 : 1935 resected, not quite as much tissue on the left lateral lobe. This resection went very nicely. Anteriorly, there was some tissue especially at the bladder neck which had to be resected, and we did carry this back to a level just proximal to the verumontanum. Once I had cleared out all the mucosa, we obtained a moderate amount of hemostasis. I was able to identify fairly significant amount of nodular tissue existing between about 3 and 9 o'clock. Beginning at the right lateral lobe, we did carry this resection down to about the 6 o'clock position extending this out to the verumontanum and likewise between 3 and 6 on the other side of the prostatic urethra were resected. At this point, all prostate tissue was evacuated from the bladder. We did have a fairly significant amount of arterial bleeding which was controlled at the bladder neck and then we worked our way systematically to the prostatic urethra obtaining hemostasis. There was some residual nodular tissue which did require resection and this was addressed. At the termination of our resection, the residual prostate tissue was evacuated from the bladder. We then went ahead and closely inspected the prostatic urethra and controlled all focal bleeding points. The ureteral orifice was visualized just proximal to our area of resection. There was no residual prostate tissue within the bladder lumen. Without flow, we did allow the bladder decompress slowly, and there was no obvious arterial bleeding. We went ahead and removed the scope. A 22-P[place] Islander 3-way Obregon catheter was then passed. With 40 mL instilled in the balloon, this seats nicely at the bladder neck. With gentle traction, urinary effluent was clear to light pink. We did go ahead and placed the catheter with a gentle traction on the patient's abdomen. This was left to gravity drainage. A normal saline CBI was initiated. We did go ahead and send all prostate tissue for pathological analysis. The patient was taken out of dorsal lithotomy position. He was extubated uneventfully and transferred to recovery room in stable condition with normal saline continuous bladder irrigation. ESTIMATED BLOOD LOSS: 100 mL. COMPLICATIONS: No other apparent complications. The patient will be continued to be managed on an inpatient basis. Colin Cardenas MD/ adina JOB #: [id number] CC: Minerva Dozier, Attending Physician Minerva Dozier, Family Physician
--- NOTE | 2016-07-31 06:44 | DS ---
ADMIT: 06/26/2016 RM/LOC: 623 [facility] MR#: [id number] 2620 [facility] [address] [place] [phone] MISSYDILLAN CORDEROE Maia [address] [place] [address] General Discharge Summary SEX: M AGE: 80 : 1935 ADMISSION DATE: 06/26/2016 DISCHARGE DATE: 07/02/2016 FINAL DIAGNOSES: 1. Benign prostatic hypertrophy with secondary hematuria and bladder outlet obstruction. 2. Anemia acute on chronic. 3. Chronic hypertension, treated and stable. 4. Chronic obstructive lung disease with chronic hypoxic respiratory failure. PROCEDURE: Transurethral prostate resection on 06/30/2016. On admission, this gentleman had gross hematuria. He had had recent hospital stays for bladder outlet obstruction. He had had been on routine anticoagulant with Eliquis due to coronary artery disease and AV block. His Eliquis was stopped on June 22 when he came in with hematuria, and he was dismissed home and then he was readmitted on for this hospital stay on 06/26/2016 with recurrent hematuria including clots. He has indwelling Obregon catheter. In the emergency room, Dr. Cardenas came and saw him as well and made plans for irrigation of the bladder. Over the course of the first several days of the hospital stay, we monitored renal function, which was stable. Creatinine on admission was 1.0. Electrolytes were fine. Hemoglobin on admission was 12.4, but that did drop to 9.7 postoperatively. On 06/30, he underwent TURP and then over the course of the next 2 to 3 days did well with his voiding trials and was eventually dismissed home on 07/02/2016. His Eliquis was stopped, and he is on no anticoagulation because of the recurrent hemorrhaging from the bladder. We will defer to Urology regarding ADMIT: 06/26/2016 RM/LOC: 623 [facility] MR#: [id number] 2620 [facility] [address] [place] [phone] JUSTINA ARTEAGA [address] [place] [address] General Discharge Summary SEX: M AGE: 80 : 1935 future need to continue to hold this medication. He will follow up with his own provider through [facility] in about 1 week, and he needs BMP, CBC as well as repeat blood pressure checks and close followup there. Dr. Cardenas sent him home on Bactrim DS 1 b.i.d. for 10 more days and plans to follow up in the clinic with him in about 3 weeks. His Flomax was discontinued. On the day of dismissal, the patient had recurrent difficulties with voiding and so actually did go home with a Obregon catheter, which will be reassessed at his followup visit with Urology. Minerva Dozier MD/ adina JOB #: [id number] CC: Minerva Dozier MD, Attending Physician Minerva Dozier MD, Family Physician
== END 2016-07-02 15:50 | disposition home or self-care (01) | DRG 713 ==
LOC: ER 09:18 → 4PCU 11:13 → 6PED 06-30 15:05
PROVIDERS: ADMIT Family Medicine
PROC: 0VT08ZZ Resection of Prostate, Via Natural or Artificial Opening Endoscopic (ICD-10-PCS; principal; 2016-06-30)
DX: N40.1 Benign prostatic hyperplasia with lower urinary tract symptoms (principal); J96.11 Chronic respiratory failure with hypoxia; N17.9 Acute kidney failure, unspecified; I95.9 Hypotension, unspecified; R31.0 Gross hematuria; J44.9 Chronic obstructive pulmonary disease, unspecified; D64.9 Anemia, unspecified; I25.10 Atherosclerotic heart disease of native coronary artery without angina pectoris; N32.0 Bladder-neck obstruction; I10 Essential (primary) hypertension; E03.9 Hypothyroidism, unspecified; M19.90 Unspecified osteoarthritis, unspecified site; R33.8 Other retention of urine; Z95.0 Presence of cardiac pacemaker

== ENCOUNTER 2016-07-11 14:46 | Emergency (ER) | payer MEDICARE ==
[~2016-07-11 14:46] MED LIST changes: +COLACE-DPS100 MG PO; +FEOSOL-DPS325 MG PO; +LORTAB 7.5-3251 EACH PO; +OCEAN NASAL MIS45 ML NS; +OMNICEF DPS300 MG PO; +TYLENOL DPS325 MG PO
--- NOTE | 2016-07-11 22:03 | ER ---
ADMIT: 07/11/2016 RM/LOC: ER [facility] MR#: [id number] [address] [address] JUSTINA ARTEAGA [address] [place] [address] Emergency Room Report SEX: M AGE: 80 : 1935 DATE: 07/11/2016 HISTORY OF PRESENT ILLNESS: The patient is an 80-year-old male with a past medical history of COPD, arrhythmia status post pacemaker implantation, BPH, waiting for TURP on Wednesday. The patient came to the ER because he believes that the Obregon indwelling catheter is not working. The patient does not feel any pressure or pain, but states he did not notice any new urine in the bag. PHYSICAL EXAMINATION: GENERAL: The patient was in no pain or distress. VITAL SIGNS: Stable. HEAD AND NECK: Noncontributory. CHEST: No crackles or extra sounds. ABDOMEN: Soft, suprapubic percussion did not show any elevated bladder, there were small about 200 mL of dark pinkish urine in the back, which per the patient was his baseline. I did not see any clots. After doing the bladder scan, there were about 77 mL of urine in the bladder, the serena yellow urine in the tubing, Obregon was flushed and was successful, Obregon is working, and the patient has no pain or distress and is stable to be discharged to home to be followed up by the primary doctor and urologist as scheduled. Magnus Kim MD/ adina JOB #: [id number] CC: Allan Ibarra MD, Attending Physician [facility] Physician, Family Physician
== END 2016-07-11 15:30 | disposition home or self-care (01) ==
LOC: ER 14:46
PROC: BT20ZZZ Computerized Tomography (CT Scan) of Bladder (ICD-10-PCS; principal; 2016-07-11)
DX: N40.1 Benign prostatic hyperplasia with lower urinary tract symptoms (principal); R33.8 Other retention of urine; Z95.0 Presence of cardiac pacemaker